=== PATIENT | female | born 1980 | race Two or more races ===

== ENCOUNTER 2018-08-26 20:35 | Emergency (ER) | payer OTHER ==
[~2018-08-26] VITALS: Ht 160 cm; Wt 81.2 kg
== END 2018-08-26 22:35 | disposition home or self-care (01) ==
LOC: ER 20:35
DX: S93.492A Sprain of other ligament of left ankle, initial encounter (principal); X50.0XXA Overexertion from strenuous movement or load, initial encounter; Y93.89 Activity, other specified; Y92.59 Other trade areas as the place of occurrence of the external cause; Y99.8 Other external cause status